=== PATIENT | female | born 1935 | race Caucasian/White ===

== ENCOUNTER 2019-10-03 16:36 | Inpatient (IN) | payer BC ==
[~2019-10-03] VITALS: Ht 162.6 cm; Wt 65.0 kg
[2019-10-03 17:15] VITALS: Ht 162.6 cm; Wt 65.0 kg
[2019-10-03 19:05] LABS: BASOPHIL % 0.1 % (0-2); PLATELET COUNT 139 x10^3mcL (130-400); RED CELL DISTRIBUTION WIDTH 14.1 % (11.5-14.5)
[2019-10-03 19:28] LABS: CALCIUM 8.1 mg/dL (8.5-10.1); CARBON DIOXIDE 25.5 mmol/L (21-32); CHLORIDE SERUM 101 mmol/L (98-107); CREATININE SERUM 1.3 mg/dL (0.6-1.0); GLUCOSE SERUM 282 mg/dL (74-106); POTASSIUM SERUM 4.4 mmol/L (3.5-5.1); SODIUM SERUM 135 mmol/L (136-145)
[2019-10-03 19:32] LABS: ALKALINE PHOSPHATASE 77 U/L (46-116); ALT/SGPT 24 U/L (14-59); AST/SGOT 19 U/L (15-37); BILIRUBIN TOTAL 0.5 mg/dL (0.20-1.00); CHOLESTEROL 154 mg/dL (<200); HDL CHOLESTEROL 42 mg/dL (40-60); TOTAL PROTEIN, SERUM 6.7 g/dL (6.4-8.2)
[2019-10-03 19:33] LABS: ALBUMIN 3.3 g/dL (3.4-5.0)
[2019-10-03 20:00] LABS: UA SPECIFIC GRAVITY 1.025 (1.005-1.035); microscopic required? YES; urine erythrocyte NEGATIVE (NEGATIVE)
[2019-10-03] MEDS ORDERED: LANTUS SOLOS100 U/M1 (21:35)
[2019-10-03] MEDS ORDERED: COZAAR50 M1 PO (21:36)
[2019-10-03] MEDS ORDERED: NAMENDA10 M2 PO (21:36)
[2019-10-03] MEDS ORDERED: SEROQUEL50 M1 PO (21:37)
[2019-10-03] MEDS ORDERED: TYLENOL EXTRA500 M3 PO (21:37)
[2019-10-03] MEDS ORDERED: SINGULAIR10 MG PO (21:37)
[2019-10-03 22:58] VITALS: BP 137/69
[2019-10-04 05:37] VITALS: BP 140/80
[2019-10-04 06:31] LABS: BASOPHIL % 0.2 % (0-2); RED CELL DISTRIBUTION WIDTH 14.1 % (11.5-14.5)
[2019-10-04 06:56] LABS: CALCIUM 8.4 mg/dL (8.5-10.1); CARBON DIOXIDE 26.4 mmol/L (21-32); CHLORIDE SERUM 107 mmol/L (98-107); GLUCOSE SERUM 195 mg/dL (74-106); MAGNESIUM 2.1 mg/dL (1.8-2.4); PHOSPHOROUS 2.1 mg/dL (2.5-4.9); SODIUM SERUM 142 mmol/L (136-145)
[2019-10-04 07:48] LABS: PLATELET COUNT 126 x10^3mcL (130-400)
[2019-10-04 11:56] VITALS: BP 142/54
[2019-10-04 14:18] VITALS: BP 120/52
[2019-10-04] MEDS ORDERED: ZITHROMAX500 MG PO (15:29)
[2019-10-04] MEDS ORDERED: ZITHROMAX250 MG PO (15:32)
[2019-10-04 15:43] VITALS: BP 120/52
== END 2019-10-04 16:09 | disposition home or self-care (01) | DRG 871 ==
LOC: ED 16:36 → DU 22:05
PROVIDERS: Emergency Medicine; Internal Medicine; ADMIT Internal Medicine
DX: A41.9 Sepsis, unspecified organism (principal); J18.9 Pneumonia, unspecified organism; N17.0 Acute kidney failure with tubular necrosis; G92 Toxic encephalopathy; N39.0 Urinary tract infection, site not specified; E11.65 Type 2 diabetes mellitus with hyperglycemia; I10 Essential (primary) hypertension; G30.9 Alzheimer's disease, unspecified; F02.80 Dementia in other diseases classified elsewhere, unspecified severity, without behavioral disturbance, psychotic disturbance, mood disturbance, and anxiety; E86.0 Dehydration; Z79.4 Long term (current) use of insulin; Z68.24 Body mass index [BMI] 24.0-24.9, adult
CPT/HCPCS: 82962; 87804; 97116-GP; G0378; J0456; J0696; J7030; J7050; J7060; Q0092